=== PATIENT | female | born 1990 | race Asian ===

== ENCOUNTER 2023-09-08 03:00 | Inpatient (IN) | payer BC, OTHER ==
[~2023-09-08] VITALS: Ht 160 cm; Wt 69.4 kg
[2023-09-08 03:49] VITALS: BP 110/66; PULSE 88; RESP 17; TEMP 97.5
[2023-09-08] MEDS ORDERED: DOCO200C2 PO (05:00)
[2023-09-08] MEDS ORDERED: MAGN400S60 PO (05:00)
[2023-09-08] MEDS ORDERED: CARBOPROST 250 MCG/ML AMP IM PRN (12:30)
[2023-09-08] MEDS ORDERED: METHYLERGONOVINE 0.2 MG/ML AMP IM PRN (12:30)
[2023-09-08] MEDS ORDERED: OXYTOCIN 10 UNITS/ML VIAL IM SCH (12:30)
[2023-09-08 13:25] LABS: BASOPHILS % (AUTO) 0.4 % (0.0-2.0); EOSINOPHILS # (AUTO) 0.1 K/uL (0-0.4); EOSINOPHILS % (AUTO) 0.8 % (0.0-4.0); HEMATOCRIT 39.4 % (36-48); HEMOGLOBIN 13.2 g/dL (12.0-16.0); LYMPHOCYTES # (AUTO) 1.1 K/uL (2.5-16.5); LYMPHOCYTES % (AUTO) 16.4 % (20.5-51.1); MEAN CORPUSCULAR HEMOGLOBIN 32 pg (27-31); MEAN CORPUSCULAR HGB CONC 34 g/dL (33-37); MONOCYTES # (AUTO) 0.6 K/uL (0.8-1.0); MONOCYTES % (AUTO) 9.8 % (1.7-9.3); NEUTROPHILS # (AUTO) 4.8 K/uL (1.8-7.7); NEUTROPHILS % (AUTO) 72.6 % (42.2-75.2); PLATELET COUNT (AUTO) 150 K/uL (140-450); RED BLOOD CELL COUNT(AUTO) 4.19 MIL/uL (4.20-5.40); RED CELL DISTRIBUTION WIDTH 13.7 % (11.6-13.7); WHITE BLOOD COUNT (AUTO) 6.6 K/uL (4.8-10.8)
[2023-09-08 13:47] LABS: INR 0.85 (0.8-1.2); PARTIAL THROMBOPLASTIN TIME 26.1 secs (22-35.6)
[2023-09-08 13:48] LABS: ANION GAP 12.8 (8-16); CALCIUM 8.4 mg/dL (8.5-10.1); CARBON DIOXIDE 25.3 mmol/L (21-32); CREATININE 0.6 mg/dL (0.6-1.3); POTASSIUM 4.1 mmol/L (3.5-5.1); TOTAL BILIRUBIN 0.4 mg/dL (0.0-1.0); TOTAL PROTEIN, SERUM 6.6 g/dL (6.4-8.2)
[2023-09-08] MEDS: LACTATED RINGERS 1,000 ML IV SCH (13:58)
[2023-09-08] MEDS: OXYTOCIN/0.9 % SODIUM CHLORIDE 500 ML IV SCH (14:00)
[2023-09-08 14:59] LABS: APPEARANCE,URINE SLIGHTLY HAZY (CLEAR); BILIRUBIN,URINE NEGATIVE (NEGATIVE); BLOOD, URINE NEGATIVE (NEGATIVE); COLOR,URINE YELLOW (YELLOW); LEUKOCYTE ESTERASE ,URINE TRACE (NEGATIVE); NITRITE, URINE NEGATIVE (NEGATIVE); PROTEIN,URINE TRACE (NEGATIVE); UGLUCOSE NEGATIVE (NEGATIVE); UROBILINOGEN,URINE 0.2 EU/dL (0.2 - 1)
[2023-09-08 15:00] LABS: RBC,URINE 0-5 /HPF (0-5); WBC,URINE 0-5 /HPF (0-5)
[2023-09-08 15:01] LABS: BACTERIA,URINE 2+ /HPF (None Seen); MUCUS,URINE None Seen /LPF (None Seen); SQUAMOUS EPITHELIAL CELL,UR 4-10 (MOD) /LPF (0-3 (FEW))
[2023-09-08] MEDS ORDERED: MORPHINE SULFATE 10 MG/ML VIAL IVP PRN (18:30)
[2023-09-08] MEDS ORDERED: ONDANSETRON 4 MG/2 ML VIAL IVP PRN (18:30)
[2023-09-08] MEDS ORDERED: ROPIVACAINE 0.2%/NS PREMIX 200 ML EPI ONE (18:40)
[2023-09-09] MEDS ORDERED: ROPIVACAINE 0.2%/NS PREMIX 200 ML EPI ONE (07:37)
[2023-09-09] MEDS ORDERED: AMPICILLIN 2,000 MG VIAL ONE (15:25)
[2023-09-09] MEDS: AMPICILLIN 2,000 MG in NACL 0.9% 100 ML IV SCH (15:34)
[2023-09-09] MEDS ORDERED: CITRIC ACID/SODIUM CITRATE 30 ML UDC PO ONE (19:40)
[2023-09-09] MEDS ORDERED: ceFAZolin 2,000 MG VIAL ONE (20:08)
[2023-09-09] MEDS ORDERED: GENTAMICIN 80 MG in DEXTROSE 5% 100 ML IV SCH (20:10)
[2023-09-09] MEDS ORDERED: GENTAMICIN PER PHARMACY MC PRN (20:10)
[2023-09-09] MEDS ORDERED: fentaNYL citrate 0.05 MG/ML VIAL ONE (20:15)
[2023-09-09] MEDS ORDERED: MORPHINE PRES FREE 5 MG/10 ML AMP IV ONE (20:15)
[2023-09-09] MEDS: GENTAMICIN 80 MG/2 ML VIAL ONE (20:15)
[2023-09-09] MEDS ORDERED: LIDOCAINE/EPI MPF 2%1:200000 10 ML VIAL INJ ONE ×2 (20:16→20:38)
[2023-09-09] MEDS ORDERED: diphenhydrAMINE 50 MG/ML VIAL ONE (20:54)
[2023-09-09] MEDS ORDERED: ONDANSETRON 4 MG/2 ML VIAL IVP PRN (21:35)
[2023-09-09] MEDS ORDERED: diphenhydrAMINE 50 MG/ML VIAL IVP PRN (21:35)
[2023-09-09] MEDS ORDERED: NALOXONE 0.4 MG/ML VIAL IVP PRN ×3 (21:35)
[2023-09-09] MEDS ORDERED: METHYLERGONOVINE 0.2 MG/ML AMP IM PRN (22:00)
[2023-09-09] MEDS ORDERED: SIMETHICONE 80 MG TAB.CHEW PO PRN (22:00)
[2023-09-09] MEDS ORDERED: MEASLES, MUMPS, AND RUBELLA 1 VIAL SQVAC ONE (22:00)
[2023-09-09] MEDS ORDERED: KETOROLAC 30 MG/ML VIAL IVP PRN (22:00)
[2023-09-10] MEDS ORDERED: KETOROLAC 30 MG/ML VIAL IM/IVP SCH
[2023-09-10] MEDS: KETOROLAC 30 MG/ML VIAL IM/IVP SCH (04:03)
[2023-09-10 08:54] LABS: BASOPHILS % (AUTO) 0.2 % (0.0-2.0); HEMATOCRIT 33.6 % (36-48); HEMOGLOBIN 11.3 g/dL (12.0-16.0); LYMPHOCYTES # (AUTO) 0.6 K/uL (2.5-16.5); LYMPHOCYTES % (AUTO) 5.5 % (20.5-51.1); MEAN CORPUSCULAR HEMOGLOBIN 32 pg (27-31); MEAN CORPUSCULAR HGB CONC 34 g/dL (33-37); MEAN CORPUSCULAR VOLUME 95.8 fL (80-94); MONOCYTES # (AUTO) 0.9 K/uL (0.8-1.0); MONOCYTES % (AUTO) 8.8 % (1.7-9.3); NEUTROPHILS # (AUTO) 9.2 K/uL (1.8-7.7); NEUTROPHILS % (AUTO) 85.5 % (42.2-75.2); PLATELET COUNT (AUTO) 139 K/uL (140-450); RED BLOOD CELL COUNT(AUTO) 3.51 MIL/uL (4.20-5.40); RED CELL DISTRIBUTION WIDTH 13.8 % (11.6-13.7)
[2023-09-10 08:55] LABS: WHITE BLOOD COUNT (AUTO) 10.8 K/uL (4.8-10.8)
[2023-09-10] MEDS: OXYTOCIN/0.9 % SODIUM CHLORIDE 500 ML IV SCH (11:47)
[2023-09-10] MEDS ORDERED: IBUPROFEN 800 MG TAB PO PRN (18:25)
[2023-09-10] MEDS: oxyCODONE/APAP 5/325 MG 1 TAB TAB PO PRN (18:30)
[2023-09-10] MEDS ORDERED: CAMERA MC ONE ×2 (19:39)
[2023-09-11] MEDS: oxyCODONE/APAP 5/325 MG 1 TAB TAB PO PRN (08:15)
[2023-09-11] MEDS ORDERED: CAMERA MC ONE (19:42)
[2023-09-11] MEDS: bisacodyL 5 MG TABEC PO PRN (20:43)
== END 2023-09-12 09:50 | disposition home or self-care (01) | DRG 788 ==
LOC: MLD 03:00 → OBSVTOIN 12:20 → MLD 14:07 → MFCC 09-09 23:04
PROVIDERS: ADMIT Obstetrics & Gynecology; ATTEND Obstetrics & Gynecology
PROC: 10D00Z1 Extraction of Products of Conception, Low, Open Approach (ICD-10-PCS; principal; 2023-09-12)
DX: O62.2 Other uterine inertia (principal); Z3A.40 40 weeks gestation of pregnancy; Z37.0 Single live birth
CPT/HCPCS: 36415; 51702; 80053; 81001; 85025; 85610; 85730; 86592; 86886; 86900; 86901; 87086; J0290; J0690; J1200; J1580; J1885; J2001; J2590; J2795; J3010; J7060; J7120